=== PATIENT | male | born 1965 | race Caucasian/White ===

== ENCOUNTER 2018-12-22 16:42 | Emergency (ER) | payer OTHER ==
--- NOTE | 2018-12-22 16:44 | ER Report ---
History and Physical Time Seen By MD: 16:44 HPI/ROS CHIEF COMPLAINT: I think Im in afib HISTORY OF PRESENT ILLNESS: PT states that he was sitting and suddenly felt his heart racing. Pt felt light headed. Denies any sob. Pt states he has hx of afib last February and was admitted overnight to [facility]. Pt was placed on a Diltiazem gtt and states that he converted. pt also was placed on eliquis. Pt states he is no longer on Diltiazem just eliquis. 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 REVIEW OF SYSTEMS: Constitutional: No fever, no chills. Eyes: No discharge. ENT: No sore throat. Cardiovascular: No chest pain, n+palpitations. Respiratory: No cough, no shortness of breath. Gastrointestinal: No abdominal pain, no vomiting. Genitourinary: No hematuria. Musculoskeletal: No back pain. Skin: No rashes. Neurological: No headache, + light headed Allergies: Coded Allergies: No Known Drug Allergies (Unverified , 12/22/18) Home Meds Reported Medications Levothyroxine Sodium (SYNTHROID) 25 Mcg Tablet, 25 MCG PO QDAY 12/22/18 Apixaban (ELIQUIS) 5 Mg Tablet, 5 MG PO BID 12/22/18 Past Medical/Surgical History Pmhx: wpw Pshx: rotator cuff surgery, cardiac ablation Reviewed Nurses Notes: No Hx Alcohol Use: No Constitutional Vital Sign - Last 24 Hours 12/22/18 16:46 Pulse 170 Resp 24 B/P (MAP) 147/93 Pulse Ox 92 O2 Delivery Room Air Physical Exam General Appearance: The patient is alert, has no immediate need for airway protection and no signs of toxicity. Eyes: Pupils equal and round no pallor or injection, EOMI ENT: no pharyngeal erythema or exudates, Mucous membranes are moist Respiratory: There are no retractions, lungs are clear to auscultation. Cardiovascular: Tachycardic. pulses are equal and symmetrical Gastrointestinal: Abdomen is soft and non tender, no masses, bowel sounds normal, no guarding, no rigidity or rebound Neurological: Cranial nerves II-XII grossly intact, no sensory or motor loss Skin: Warm and dry, no rashes. Musculoskeletal: Neck is supple non tender, no vertebral tenderness Extremities are nontender, nonswollen and have full range of motion. DIFFERENTIAL DIAGNOSIS: After history and physical exam differential diagnosis was considered for svt, thyroid ds, electrolyte abnl, afib Medical Decision Making Data Points Result Diagram: 12/22/18 1651 12/22/18 1651 Laboratory Hematology Test 12/22/18 16:51 Red Blood Count 6.21 M/uL (4.00-5.60) Mean Corpuscular Volume 86.5 fL (80.0-96.0) Mean Corpuscular Hemoglobin 29.6 pg (26.0-33.0) Mean Corpuscular Hemoglobin Concent 34.2 g/dL (32.0-36.0) Red Cell Distribution Width 14.0 % (11.5-14.5) Mean Platelet Volume 9.0 fL (7.2-11.1) Neutrophils (%) (Auto) % (39.4-72.5) Lymphocytes (%) (Auto) % (17.6-49.6) Monocytes (%) (Auto) % (4.1-12.4) Eosinophils (%) (Auto) % (0.4-6.7) Basophils (%) (Auto) % (0.3-1.4) Nucleated RBC Relative Count (auto) /100WBC Neutrophils # (Auto) K/uL (2.0-7.4) Lymphocytes # (Auto) K/uL (1.3-3.6) Monocytes # (Auto) K/uL (0.3-1.0) Eosinophils # (Auto) K/uL (0.0-0.5) Basophils # (Auto) K/uL (0.0-0.1) Nucleated RBC Absolute Count (auto) K/uL Neutrophils % (Manual) 57 % (39.4-72.5) Lymphocytes % (Manual) 37 % (17.6-49.6) Monocytes % (Manual) 4 % (4.1-12.4) Eosinophils % (Manual) 2 % (0.4-6.7) Basophils % (Manual) 0 % (0.3-1.4) Sodium Level 138 mmol/L (137-145) Potassium Level 3.4 mmol/L (3.5-5.0) Chloride Level 99 mmol/L (98-107) Carbon Dioxide Level 29 mmol/L (22-30) Blood Urea Nitrogen 20 mg/dl (9-21) Creatinine 1.00 mg/dl (0.66-1.25) Glomerular Filtration Rate Calc > 60.0 Random Glucose 90 mg/dl (75-110) Calcium Level 9.2 mg/dl (8.4-10.2) Magnesium Level 1.8 mg/dl (1.7-2.2) Chemistry Test 12/22/18 16:51 White Blood Count 10.2 k/uL (4.5-11.0) Red Blood Count 6.21 M/uL (4.00-5.60) Hemoglobin 18.4 g/dL (14.0-18.0) Hematocrit 53.7 % (42.0-52.0) Mean Corpuscular Volume 86.5 fL (80.0-96.0) Mean Corpuscular Hemoglobin 29.6 pg (26.0-33.0) Mean Corpuscular Hemoglobin Concent 34.2 g/dL (32.0-36.0) Red Cell Distribution Width 14.0 % (11.5-14.5) Platelet Count 148 K/uL (150-450) Mean Platelet Volume 9.0 fL (7.2-11.1) Neutrophils (%) (Auto) % (39.4-72.5) Lymphocytes (%) (Auto) % (17.6-49.6) Monocytes (%) (Auto) % (4.1-12.4) Eosinophils (%) (Auto) % (0.4-6.7) Basophils (%) (Auto) % (0.3-1.4) Nucleated RBC Relative Count (auto) /100WBC Neutrophils # (Auto) K/uL (2.0-7.4) Lymphocytes # (Auto) K/uL (1.3-3.6) Monocytes # (Auto) K/uL (0.3-1.0) Eosinophils # (Auto) K/uL (0.0-0.5) Basophils # (Auto) K/uL (0.0-0.1) Nucleated RBC Absolute Count (auto) K/uL Neutrophils % (Manual) 57 % (39.4-72.5) Lymphocytes % (Manual) 37 % (17.6-49.6) Monocytes % (Manual) 4 % (4.1-12.4) Eosinophils % (Manual) 2 % (0.4-6.7) Basophils % (Manual) 0 % (0.3-1.4) Glomerular Filtration Rate Calc > 60.0 Calcium Level 9.2 mg/dl (8.4-10.2) Magnesium Level 1.8 mg/dl (1.7-2.2) EKG/Imaging EKG Interpretation Nsr @ 80 with no acute change ED Course/Re-evaluation ED Course Will obtain labs and ekg PTs converted to NSR prior to ekg while he was getting an IV stick for labs. EKG was obtaine hira that point and pt NS@80 12/22/2018 5:21:53 pm PTs potassium is low, will replace. Will also give a gram of magnesium since he was in svt and mag is low end of normal. will also give pt one dose of b-aditya since his blood pressure is boarderline and want to prevent reoccurance. Pt will need to follow up with financial intern back in [place] 12/22/2018 5:38:32 pm PT feeling "much better" . Pt states he has an event monitor placed so it was recorded and he will speak with his financial intern on Monday . Decision to Disposition Date: Dec 22, 2018 Decision to Disposition Time: 17:39 Depart Departure Latest Vital Signs Vital Signs Date Time Temp Pulse Resp B/P (MAP) Pulse Ox O2 Delivery O2 Flow Rate FiO2 12/22/18 16:46 170 24 147/93 92 Room Air Impression: Primary Impression: SVT (supraventricular tachycardia) Condition: Improved Disposition: HOME OR SELF-CARE Patient Instructions: Supraventricular Tachycardia (ED) Additional Instructions: You were in a supraventricular tachycardia when you arrived. Your magnesium and potassium were replaced. We did check your thyroid levels but they will not be back today. We will call you if they are abnormal. Follow up with your financial intern. Return as needed. TRANG MONZON DO Dec 22, 2018 16:44
[2018-12-22] MEDS ORDERED: NS(*) 0.9% 1000 ML BAG 1,000 ML IV ONE (16:50)
[2018-12-22] MEDS ORDERED: LEVO25TA57 PO (16:56)
[2018-12-22] MEDS ORDERED: APIX5TAB PO (16:56)
[2018-12-22 17:01] LABS: PLATELET COUNT, AUTOMATED 148 K/uL (150-450)
[2018-12-22] MEDS ORDERED: MAGNESIUM SUL/D5W* 1 GM/100 ML 100 ML IVPB ONE (17:15)
[2018-12-22] MEDS ORDERED: ATENOLOL 25 MG TAB PO ONE (17:15)
[2018-12-22] MEDS ORDERED: POTASSIUM CHL 20 MEQ TABCR PO ONE (17:15)
--- NOTE | 2018-12-22 17:36 | EKG ---
FACILITY: [facility] PATIENT NAME: CARLOS MULLINS : [id number] MR: [id number] V: [id number] EXAM DATE: ORDERING PHYSICIAN: TRANG MONZON TECHNOLOGIST: POLLY Test Reason : a-fib Blood Pressure : / mmHG Vent. Rate : 082 BPM Atrial Rate : 082 BPM P-R Int : 170 ms QRS Dur : 098 ms QT Int : 346 ms P-R-T Axes : 041 055 036 degrees QTc Int : 404 ms Normal sinus rhythm Normal ECG No previous ECGs available Confirmed by JARRET SUTHERLAND ([id number]) on 12/23/2018 6:58:46 AM Referred By: NICOLÁS Confirmed By:JARRET SUTHERLAND
[2018-12-22 17:42] VITALS: BP 132/82
== END 2018-12-22 17:51 | disposition home or self-care (01) ==
LOC: ER 16:50
DX: I47.1 Supraventricular tachycardia (principal); E87.6 Hypokalemia
CPT/HCPCS: 83735; 84443; 85025; 93005; 96365; 99283; J3475; J7030; 82310; 82374; 82435; 82565; 82947; 84132; 84295; 84520